=== PATIENT | female | born 1970 | race Hispanic/Latino ===

== ENCOUNTER 2018-07-06 14:20 | Outpatient (CLI) | payer BC ==
--- NOTE | 2018-07-06 15:24 | RAD ---
RIGHT HAND THREE VIEWS: History: Hand pain and swelling. Comparison: None. FINDINGS: No acute fracture or subluxation is evident. No radiopaque foreign body is noted. IMPRESSION: No acute osseous abnormality. POS: [facility]
--- NOTE | 2018-07-06 15:26 | RAD ---
LEFT HAND THREE VIEWS: History: History of left hand pain. Comparison: None. FINDINGS: No acute fracture or subluxation is evident. A small subchondral cyst like abnormality within the dis biju aspect of the ulna. Carpal alignment appears within normal limits. Bone mineralization is normal appearing. No periventricular erosive change is evident. Soft tissues are normal. IMPRESSION: No acute osseous abnormalities. POS: [facility]
== END 2018-07-06 14:21 | disposition home or self-care (01) ==
LOC: SCSRAD 14:20
DX: M79.641 Pain in right hand (principal); M79.642 Pain in left hand

== ENCOUNTER 2019-10-12 05:44 | Outpatient (CLI) | payer BC, OTHER ==
--- NOTE | 2019-10-15 16:13 | EKG ---
Test Reason : Blood Pressure : / mmHG Vent. Rate : 067 BPM Atrial Rate : 067 BPM P-R Int : 132 ms QRS Dur : 090 ms QT Int : 400 ms P-R-T Axes : 071 072 074 degrees QTc Int : 422 ms Normal sinus rhythm with sinus arrhythmia Normal ECG No previous ECGs available Confirmed by JACKELIN HUERTA (2) on 10/15/2019 4:13:03 PM Referred By: RERE Confirmed By:JACKELIN HUERTA
== END 2019-10-12 05:45 | disposition home or self-care (01) ==
LOC: LABBT 05:44
PROVIDERS: ATTEND Urology
DX: Z01.818 Encounter for other preprocedural examination (principal); Z11.59 Encounter for screening for other viral diseases; N28.89 Other specified disorders of kidney and ureter
CPT/HCPCS: 93005; 93010

== ENCOUNTER 2019-10-12 10:00 | Inpatient (IN) | payer BC, OTHER ==
[2019-10-12 09:49] VITALS: BMI 28.8
[2019-10-12 11:25] LABS: INR-International Normal Ratio 0.9; Prothrombin Time 12.4 sec (12.0-14.7)
[2019-10-12 11:26] LABS: PTT 30.1 SEC (22.9-36.1)
[2019-10-12 11:31] LABS: Hemoglobin 15.6 g/dL (12.0-16.0); Mean Corpuscular HGB CONC 31.7 g/dL (32.0-36.0); Mean Corpuscular Hemoglobin 29.4 pg (27.0-31.0); Mean Corpuscular Volume 92.8 fL (78.0-98.0); Mean Platelet Volume 7.7 fL (7.4-10.4); Platelet Count 282 thou/uL (130-400); RBC Distribution Width 12.3 % (11.5-14.5); White Blood Cell (WBC) Count 7.8 thou/uL (4.8-10.8)
[2019-10-12 11:35] LABS: Anion Gap 11 mmol/L (10-20); BUN (Urea Nitrogen) 15 mg/dL (9.8-20.1); Calc. Creatinine Clearance 0 mL/min (70-130); Calcium 9.5 mg/dL (7.8-10.44); Carbon Dioxide 27 mmol/L (22-29); Chloride 103 mmol/L (98-107); Estimated GFR-MDRD 80; Glucose 139 mg/dL (70-105); Potassium 3.8 mmol/L (3.5-5.1); Sodium 137 mmol/L (136-145)
[2019-10-12 17:18] LABS: SARS-CoV-2 MS2 Positive; SARS-CoV-2 N Gene Negative; SARS-CoV-2 S Gene Negative; SARS-CoV-2 orf1ab Negative
[2019-10-17] MEDS ORDERED: Lidocaine 1% w/Epinephrine 1:100K 20 ML VIAL ONE (10:47)
[2019-10-17] MEDS ORDERED: Bupivacaine 0.25% HCL 30 ML VIAL ONE (10:47)
[2019-10-17] MEDS ORDERED: PROPOFOL 200 MG/20 ML VIAL ONE (11:01)
[2019-10-17] MEDS ORDERED: PHENYLEPHRINE-NS 100 MCG/ML 10 ML SYRINGE ONE (11:01)
[2019-10-17] MEDS ORDERED: Glycopyrrolate 0.2 MG/ML 5 ML SYRINGE ONE (11:01)
[2019-10-17] MEDS ORDERED: Succinylcholine Chloride 20 MG/ML 10 ml SYRINGE FS ONE (11:01)
[2019-10-17] MEDS ORDERED: Lidocaine 1% PF 5 ML VIAL ONE (11:01)
[2019-10-17] MEDS ORDERED: Dexamethasone 20 MG/5 ML VIAL ONE (11:01)
[2019-10-17] MEDS ORDERED: Rocuronium Bromide 10 MG/ML (10ML VIAL) ONE (11:01)
[2019-10-17] MEDS ORDERED: EPHEDRINE 25 MG/5 ML SYRINGE ONE (11:01)
[2019-10-17] MEDS ORDERED: Ondansetron PF 4 MG/2 ML Vial ONE (11:01)
[2019-10-17] MEDS ORDERED: Midazolam HCl 2 mg/2 ml Vial ONE (11:30)
[2019-10-17] MEDS ORDERED: Fentanyl 250 MCG/5 ML VIAL ONE (11:30)
[2019-10-17] MEDS ORDERED: Promethazine HCl 25 MG/ML VIAL SLOW IVP PRN (13:58)
[2019-10-17] MEDS ORDERED: Ketorolac Tromethamine 30 MG/ML VIAL IVP PRN (13:58)
[2019-10-17] MEDS ORDERED: Promethazine HCl 25 MG/ML VIAL IM PRN ×2 (13:58→17:44)
[2019-10-17] MEDS ORDERED: Meperidine HCl/PF 25 MG/ML VIAL SLOW IVP PRN (13:58)
[2019-10-17] MEDS ORDERED: HYDROmorphone 2 MG/ML VIAL SLOW IVP PRN (13:58)
[2019-10-17] MEDS ORDERED: Ondansetron HCl/PF 4 MG/2 ML Vial IVP PRN (13:58)
[2019-10-17] MEDS ORDERED: SUGAMMADEX SODIUM 200 MG/2 ML VIAL ONE (14:05)
[2019-10-17] MEDS ORDERED: Promethazine HCl 25 MG/ML VIAL ONE (15:02)
[2019-10-17] MEDS ORDERED: Albumin 25% 100 ML ONE (15:37)
[2019-10-17 15:38] LABS: Band 41 % (5-11); Hemoglobin 13.9 g/dL (12.0-16.0); Lymphocytes 3 % (21-51); MDiff Complete? YES; Mean Corpuscular HGB CONC 32.5 g/dL (32.0-36.0); Mean Corpuscular Hemoglobin 30.6 pg (27.0-31.0); Mean Platelet Volume 6.9 fL (7.4-10.4); Monocytes 4 % (0-10); Neutrophil 51 % (42-75); Platelet Count 308 thou/uL (130-400); Platelet Morphology Comment Appears Adequate; RBC Distribution Width 12.1 % (11.5-14.5); RBC Morphology Normal; Reactive Lymphocytes 1 % (0-10); Red Blood Cell (RBC) Count 4.54 mill/uL (4.20-5.40); Reflex for Review?? YES; White Blood Cell (WBC) Count 31.4 thou/uL (4.8-10.8)
[2019-10-17] MEDS ORDERED: Zolpidem Tartrate 5 MG TAB PO PRN (17:44)
[2019-10-17] MEDS ORDERED: diphenhydrAMINE 50 MG/ML VIAL IVP PRN (17:44)
[2019-10-17] MEDS ORDERED: hydrALAZINE 20 MG/ML VIAL SLOW IVP PRN (17:44)
[2019-10-17] MEDS ORDERED: HYDROmorphone 0.5 MG/0.5 ML SYRINGE SLOW IVP PRN (17:44)
[2019-10-17] MEDS: Ketorolac Tromethamine 30 MG/ML VIAL IVP SCH ×2 (18:27→23:56)
[2019-10-17] MEDS: Sodium Chloride 0.9% 1,000 ML IV SCH (18:27)
[2019-10-17] MEDS: Ondansetron PF 4 MG/2 ML Vial IVP PRN (18:34)
[2019-10-17] MEDS: Morphine 4 MG/ML VIAL SLOW IVP PRN ×2 (20:24→23:57)
[2019-10-17] MEDS: Famotidine/PF 20 mg/2ml Vial SLOW IVP SCH (20:29)
[2019-10-17] MEDS: Docusate 100 MG CAP PO SCH (20:29)
[2019-10-17] MEDS: HYDROcodone/Acetaminophen 10/325 mg Tablet PO PRN ×2 (20:29→23:56)
--- NOTE | 2019-10-17 20:35 | OP ---
DATE OF PROCEDURE: 10/17/2019 PREOPERATIVE DIAGNOSIS: Right renal mass. POSTOPERATIVE DIAGNOSIS: Right renal mass. PROCEDURE PERFORMED: Right robot-assisted laparoscopic partial nephrectomy. ANESTHESIA: General. COMPLICATIONS: None. BLOOD LOSS: 1000 mL. FLUIDS: 1 unit packed red blood cells. SPECIMEN: Right renal mass. DESCRIPTION OF PROCEDURE: After informed consent, the patient was taken to the operating room, transferred to the table on her own power. Anesthesia was established. A time-out was performed, showing the correct patient, site, and procedure. She was prepped and draped in the left lateral position taking care to pad all pressure points. I began by obtaining access about 2 fingerbreadths lateral to the umbilicus with a Veress needle, using a saline drop test. Once the abdomen was insufflated, the camera trocar was passed into the abdomen through that same site. The abdomen was then inspected with the camera, noting no injuries or abnormalities. The robotic trocars were then passed under direct visualization, one in the right upper quadrant, one in the right lower quadrant. A 5 mm trocar was passed through the midline and used to place a locking grasper as a liver retractor. Finally, an head start assistant teacher trocar was placed just around midline below the umbilicus. The colon was deflected medially, and the gonadal vein identified and then traced up to the renal hilum, where I was able to identify the two renal veins and renal artery seen on CT scan. Once these were dissected, I then removed the fat from the lower pole of the kidney, identifying the renal mass. Once the renal mass was well dissected, I placed four 0 Vicryl sutures with Hem-o-xenia clips at the end into the anterior abdominal wall in preparation for closing the renorrhaphy. Bulldogs were placed on the two renal veins and the renal artery. I then began incising the anterior aspect of the proposed renorrhaphy around the renal mass. The patient still had significant bleeding despite the clamps being on. At this point, I elected to transition to a laparoscopic Satinsky. It took about 15 minutes rest to find the laparoscopic Satinsky, which was then placed, at which point the bleeding diminished greatly. The area around the tumor was then incised with electrocautery and I was able to mostly dissect out using blunt dissection. The base of the renorrhaphy was then inspected and appeared to be normal tissue. The renorrhaphy was then closed with the four 0 Vicryl sutures using Hem-o-loks to secure them in place. At this point, the Satinsky clamp was loosened noting no active bleeding and then removed entirely. I watched the renorrhaphy for about 1 minute, noting no bleeding. The Satinsky clamp was then removed from the abdomen, and Gerota fascia was closed over top of the kidney using 0 Vicryl suture. The blood in the abdomen was then irrigated. The specimen was placed into a laparoscopic specimen bag. The robot was then undocked. The trocars carefully removed. Once the trocars were removed, the specimen was then removed through the head start assistant teacher port site and passed off. All port sites were closed with 4-0 Monocryl suture and covered with Dermabond. At this point, the case was completed. The patient was awoken from anesthesia, transferred back to her hospital bed, and taken to PACU in stable condition, where she will be admitted overnight. Job ID: [id number]
[2019-10-18] MEDS: Sodium Chloride 0.9% 1,000 ML IV SCH ×3 (00:03→19:38)
[2019-10-18] MEDS: Ondansetron PF 4 MG/2 ML Vial IVP PRN (00:07)
[2019-10-18] MEDS: HYDROcodone/Acetaminophen 10/325 mg Tablet PO PRN ×3 (04:14→12:12)
[2019-10-18] MEDS: Morphine 4 MG/ML VIAL SLOW IVP PRN ×3 (04:15→14:23)
[2019-10-18] MEDS: Ketorolac Tromethamine 30 MG/ML VIAL IVP SCH ×4 (05:18→23:06)
[2019-10-18 06:00] LABS: Anion Gap 11 mmol/L (10-20); BUN (Urea Nitrogen) 19 mg/dL (9.8-20.1); Calc. Creatinine Clearance 74 mL/min (70-130); Carbon Dioxide 20 mmol/L (22-29); Chloride 110 mmol/L (98-107); Estimated GFR-MDRD 55; Glucose 154 mg/dL (70-105); Potassium 5.4 mmol/L (3.5-5.1); Sodium 136 mmol/L (136-145)
[2019-10-18 06:16] LABS: #Basophils 0.1 thou/uL (0.0-0.2); #Lymphocytes 1.4 thou/uL (1.20-3.40); #Monocytes 1.4 thou/uL (0.11-0.59); #Neutrophils 10.2 thou/uL (1.40-6.50); %Basophils 0.4 % (0.0-1.0); %Eosinophils 0.4 % (0.0-10.0); %Lymphocytes 10.5 % (21.0-51.0); %Monocytes 10.9 % (0.0-10.0); %Neutrophils 77.9 % (42.0-75.0); Hemoglobin 9.4 g/dL (12.0-16.0); Mean Corpuscular HGB CONC 33.6 g/dL (32.0-36.0); Mean Corpuscular Hemoglobin 31.6 pg (27.0-31.0); Mean Platelet Volume 6.9 fL (7.4-10.4); Platelet Count 183 thou/uL (130-400); RBC Distribution Width 11.9 % (11.5-14.5); Red Blood Cell (RBC) Count 2.96 mill/uL (4.20-5.40)
[2019-10-18] MEDS: Empagliflozin 25 MG TAB PO SCH (08:08)
[2019-10-18] MEDS: Famotidine/PF 20 mg/2ml Vial SLOW IVP SCH ×2 (08:08→19:39)
[2019-10-18] MEDS ORDERED: Calcium Gluconate 4.6 MEQ in Sodium Chloride 0.9% 100 ML IVPB SCH (08:09)
[2019-10-18] MEDS: Enoxaparin Sodium 40 MG/0.4 ML SYRINGE SC SCH (08:12)
[2019-10-18] MEDS: Docusate 100 MG CAP PO SCH ×2 (08:15→19:39)
--- NOTE | 2019-10-18 09:31 | PRG ---
DATE OF SERVICE: 10/18/2019 SUBJECTIVE: No acute events overnight. The patient continues to have a significant discomfort, although much improved from last night. She is able to use the incentive spirometry and has been ambulating. She denies chest pain, fevers, or difficulty breathing. OBJECTIVE: VITAL SIGNS: Afebrile. Vitals stable. Urine output 1425. GENERAL: No acute distress. Conversant. Unlabored breathing. HEART: Regular rate and rhythm. ABDOMEN: Soft, tender throughout, nondistended, bruising around inferior trocar site. EXTREMITIES: SCDs in place. LABORATORY DATA: Hemoglobin 9.4, down from 13 yesterday afternoon, likely dilutional. Creatinine 1.05, potassium of 5.4, and calcium 7.0. ASSESSMENT AND PLAN: Postoperative day #1, right robot-assisted laparoscopic partial nephrectomy with need for 1 unit packed red blood cells intraoperatively. Continue routine care: Pain control, out of bed, incentive spirometry, diabetic diet. Diabetes: Repeating labs at noon. If glucose is higher, we may need to consider sliding scale insulin. Hyperkalemia: Rechecking at noon. Hypocalcemia, replacing. The patient will remain in house until tomorrow morning for pain control and to ensure stabilization of lab work. Job ID: [id number]
[2019-10-18 12:39] LABS: Hemoglobin 8.9 g/dL (12.0-16.0); Mean Corpuscular HGB CONC 31.5 g/dL (32.0-36.0); Mean Corpuscular Hemoglobin 29.6 pg (27.0-31.0); Platelet Count 200 thou/uL (130-400); RBC Distribution Width 12.1 % (11.5-14.5); White Blood Cell (WBC) Count 11.8 thou/uL (4.8-10.8)
[2019-10-18 12:48] LABS: Anion Gap 11 mmol/L (10-20); BUN (Urea Nitrogen) 21 mg/dL (9.8-20.1); Calc. Creatinine Clearance 70 mL/min (70-130); Carbon Dioxide 22 mmol/L (22-29); Chloride 110 mmol/L (98-107); Estimated GFR-MDRD 52; Glucose 104 mg/dL (70-105); Potassium 3.8 mmol/L (3.5-5.1); Sodium 139 mmol/L (136-145)
[2019-10-19] MEDS: Ondansetron PF 4 MG/2 ML Vial IVP PRN (03:34)
[2019-10-19] MEDS: Ketorolac Tromethamine 30 MG/ML VIAL IVP SCH (05:35)
[2019-10-19 06:26] LABS: Hemoglobin 8.5 g/dL (12.0-16.0); Mean Corpuscular HGB CONC 33.7 g/dL (32.0-36.0); Mean Corpuscular Hemoglobin 31.6 pg (27.0-31.0); Mean Corpuscular Volume 93.7 fL (78.0-98.0); Mean Platelet Volume 7.3 fL (7.4-10.4); Platelet Count 171 thou/uL (130-400); RBC Distribution Width 12.2 % (11.5-14.5); Red Blood Cell (RBC) Count 2.68 mill/uL (4.20-5.40); White Blood Cell (WBC) Count 9.1 thou/uL (4.8-10.8)
[2019-10-19 06:46] LABS: Anion Gap 11 mmol/L (10-20); BUN (Urea Nitrogen) 18 mg/dL (9.8-20.1); Calc. Creatinine Clearance 74 mL/min (70-130); Calcium 7.9 mg/dL (7.8-10.44); Carbon Dioxide 21 mmol/L (22-29); Chloride 113 mmol/L (98-107); Estimated GFR-MDRD 55; Glucose 126 mg/dL (70-105); Potassium 4.2 mmol/L (3.5-5.1); Sodium 141 mmol/L (136-145)
[2019-10-19] MEDS: Famotidine/PF 20 mg/2ml Vial SLOW IVP SCH (10:26)
[2019-10-19] MEDS: Empagliflozin 25 MG TAB PO SCH (10:27)
[2019-10-19] MEDS: Enoxaparin Sodium 40 MG/0.4 ML SYRINGE SC SCH (10:28)
[2019-10-19] MEDS: Docusate 100 MG CAP PO SCH (10:28)
[2019-10-19] MEDS: Sodium Chloride 0.9% 1,000 ML IV SCH (10:41)
[2019-10-19] MEDS: HYDROcodone/Acetaminophen 10/325 mg Tablet PO PRN (10:53)
[2019-10-19 12:08] VITALS: BP 137/82; TEMP 98.4
--- NOTE | 2019-10-20 15:13 | DIS ---
DATE OF ADMISSION: 10/17/2019 DATE OF DISCHARGE: 10/19/2019 CHIEF COMPLAINT: Kidney tumor. HOSPITAL COURSE: The patient underwent a right robot-assisted laparoscopic partial nephrectomy. This was complicated by intraoperative hemorrhage requiring 1 unit of packed red blood cells. Otherwise, there were no surgical complications. Her hemoglobin preoperatively was 15.6, immediately postop was 13.9. The morning of postop day #1, it had drifted down to 9.4 and then 8.9 later that day. On postop day #2, the day of discharge, it had stabilized around 8.5. On postop day #1, she was still having significant discomfort, although she was ambulatory and tolerating diet. By postop day #2, her pain had improved to the point that she felt ready for discharge home. At which point, she continued to be ambulatory and was using only minimal oral pain medication. Vitals remained stable throughout her hospital course. FINAL DIAGNOSES: Neoplasm of uncertain behavior right kidney, diabetes. CONSULTATIONS: None. DISCHARGE PLAN: Follow up in 3 weeks. ACTIVITY: Light nonstressful activity. Normal bathing, diabetic diet. Job ID: [id number]
== END 2019-10-19 12:53 | disposition home or self-care (01) | DRG 658 ==
LOC: SURG A 10-17 10:29 → SURG B 10-17 17:41
PROVIDERS: ADMIT Urology; ATTEND Urology
PROC: 0TB04ZZ Excision of Right Kidney, Percutaneous Endoscopic Approach (ICD-10-PCS; principal; 2019-10-17)
PROC: 8E0WXCZ Robotic Assisted Procedure of Trunk Region (ICD-10-PCS; 2019-10-17)
PROC: 30233N1 Transfusion of Nonautologous Red Blood Cells into Peripheral Vein, Percutaneous Approach (ICD-10-PCS; 2019-10-17)
DX: D41.01 Neoplasm of uncertain behavior of right kidney (principal); Z11.59 Encounter for screening for other viral diseases; G47.30 Sleep apnea, unspecified; J30.2 Other seasonal allergic rhinitis; F41.9 Anxiety disorder, unspecified; F32.9 Major depressive disorder, single episode, unspecified; H81.09 Meniere's disease, unspecified ear; E11.9 Type 2 diabetes mellitus without complications; M06.9 Rheumatoid arthritis, unspecified; Z90.710 Acquired absence of both cervix and uterus; E87.5 Hyperkalemia; E83.51 Hypocalcemia
CPT/HCPCS: 36415; 36416; 36430; 80048; 85025; 85027; 85060; 85610; 85730; 86850; 86900; 86901; 87635; 88307; J0690; J1100; J1650; J1885; J2001; J2250; J2270; J2405; J2550; J2704; J3010; J3490; P9016; P9047; S0020; S0028; U0003

== ENCOUNTER 2020-05-10 08:47 | Outpatient (CLI) | payer BC ==
--- NOTE | 2020-05-10 10:12 | RAD ---
2 VIEW CHEST: Date: 05/10/2020 HISTORY: Renal cell carcinoma. No comparison. FINDINGS: Lung akhtar are clear. No infiltrate or vascular congestion. No evidence of pulmonary mass or nodule. Heart and mediastinum unremarkable. Osseous structures unremarkable. IMPRESSION: No acute findings. POS: [facility]
== END 2020-05-10 08:48 | disposition home or self-care (01) ==
LOC: RAD 08:47
PROVIDERS: ATTEND Urology
DX: C64.1 Malignant neoplasm of right kidney, except renal pelvis (principal); R10.9 Unspecified abdominal pain
CPT/HCPCS: 36415; 71046; 80053; 87086; 87635; U0003

== ENCOUNTER 2020-05-12 08:24 | Emergency (ER) | payer BC ==
[2020-05-12] MEDS ORDERED: Morphine 4 MG/ML VIAL ONE (09:14)
[2020-05-12 09:19] LABS: #Basophils 0.1 thou/uL (0.0-0.2); #Eosinphils 0.2 thou/uL (0.0-0.7); #Lymphocytes 1.8 thou/uL (1.20-3.40); %Basophils 0.5 % (0.0-1.0); %Eosinophils 1.3 % (0.0-10.0); %Lymphocytes 15.4 % (21.0-51.0); %Neutrophils 74.8 % (42.0-75.0); Hemoglobin 15.7 g/dL (12.0-16.0); Mean Corpuscular HGB CONC 32.9 g/dL (32.0-36.0); Mean Corpuscular Hemoglobin 30.6 pg (27.0-31.0); Mean Corpuscular Volume 92.8 fL (78.0-98.0); Platelet Count 276 thou/uL (130-400); RBC Distribution Width 12.6 % (11.5-14.5); Red Blood Cell (RBC) Count 5.12 mill/uL (4.20-5.40)
[2020-05-12] MEDS ORDERED: Ondansetron PF 4 MG/2 ML Vial ONE (09:26)
[2020-05-12 09:39] LABS: ALT (SGPT) 14 U/L (8-55); AST (SGOT) 13 U/L (5-34); Albumin 4.3 g/dL (3.5-5.0); Alkaline Phosphatase 73 U/L (40-110); Anion Gap 14 mmol/L (10-20); BUN (Urea Nitrogen) 19 mg/dL (9.8-20.1); Bilirubin, Total 0.5 mg/dL (0.2-1.2); Calc. Creatinine Clearance 0 mL/min (70-130); Calcium 9.5 mg/dL (7.8-10.44); Carbon Dioxide 25 mmol/L (22-29); Chloride 105 mmol/L (98-107); Globulin 3.4 g/dL (2.4-3.5); Glucose 109 mg/dL (70-105); Lipase 25 U/L (8-78); Potassium 3.7 mmol/L (3.5-5.1); Protein, Total 7.7 g/dL (6.0-8.3); Sodium 140 mmol/L (136-145)
[2020-05-12 09:56] LABS: Bilirubin Negative (Negative); Blood, Urine Negative (Negative); Clarity Clear (Clear); Glucose, Urine (Dipstick) Greater than 1000 mg/dL (Negative); Ketone, Urine Negative (Negative); Leukocyte Negative Leu/uL (Negative); Nitrite Negative (Negative); Protein, Urine (Dipstick) Negative (Neg-Trace); Specific Gravity, Urine 1.039 (1.002-1.036); Urobilinogen Normal mg/dL (Less than 2)
[2020-05-12] MEDS ORDERED: Fentanyl 100 MCG/2 ML VIAL ONE (10:05)
[2020-05-12] MEDS ORDERED: Iopamidol-370 76% 500 ML 1 ML ONE (11:42)
--- NOTE | 2020-05-12 13:13 | CT ---
CT ABDOMEN AND PELVIS WITH IV CONTRAST: INDICATION: Abdominal pain. Left lower quadrant pain. History of kidney cancer and partial right nephrectomy. COMPARISON: No comparison. FINDINGS: The lung bases are clear. Liver, spleen, and pancreas unremarkable. Post cholecystectomy change. Stomach and duodenum unremar kable. Adrenal glands normal. Kidneys unremarkable. Scarring from the posterior right kidney would correspond to the above history . Small bowel loops normal caliber. Appendix unremarkable. Review of the colon reveals diverticulosis of sigmoid colon. There is mural thickening and luminal n arrowing with diffuse inflammatory change involving the mid sigmoid in the midline and left lower fabiana drant. Findings are consistent with diffuse inflammation, probably on the basis of diverticulitis. There is no evidence of circumscribed fluid or abscess collection. There is edema and stranding in t he mesentery adjacent to the sigmoid. Aorta normal caliber with mild atherosclerotic change. Osseous structures unremarkable. IMPRESSION: Diverticulosis with associated mural thickening, luminal narrowing, and inflammatory change involving the sigmoid colon. Findings consistent with acute diverticulitis. No localized fluid or abscess at this time. Followup recommended. POS: [facility]
== END 2020-05-12 12:27 | disposition home or self-care (01) ==
LOC: ERS 08:24
DX: K57.32 Diverticulitis of large intestine without perforation or abscess without bleeding (principal); E11.9 Type 2 diabetes mellitus without complications; M06.9 Rheumatoid arthritis, unspecified
CPT/HCPCS: 74177; 80053; 81003; 83690; 85025; 96374; 96375; J2270; J2405; J3010; Q9967

== ENCOUNTER 2021-05-07 08:45 | Outpatient (CLI) | payer BC ==
[2021-05-07] MEDS ORDERED: Iopamidol 370 76% 100 ML VIAL ONE (09:26)
== END 2021-05-07 08:46 | disposition home or self-care (01) ==
LOC: BICCT 08:45
PROVIDERS: ATTEND Urology
DX: C64.1 Malignant neoplasm of right kidney, except renal pelvis (principal); Z98.890 Other specified postprocedural states
CPT/HCPCS: 71046; 74170; Q9967

== ENCOUNTER 2021-08-11 07:51 | Outpatient (CLI) | payer BC | END 2021-08-11 07:52 | disposition home or self-care (01) | LOC: BICMAMMO 07:51 | PROVIDERS: ATTEND Family Medicine Sports Medicine | DX: Z13.820 Encounter for screening for osteoporosis (principal); M06.9 Rheumatoid arthritis, unspecified; M05.40 Rheumatoid myopathy with rheumatoid arthritis of unspecified site; G62.9 Polyneuropathy, unspecified; M85.88 Other specified disorders of bone density and structure, other site | CPT/HCPCS: 77080 ==